=== PATIENT | male | born 1980 | race Caucasian/White ===

== ENCOUNTER → 2017-01-27 | Emergency (ER) | payer SELFPAY ==
[~2017-01-27] VITALS: Ht 175.3 cm; Wt 81.6 kg
[~2017-01-27] MED LIST: CYCL10TA9 PO; NS IV 1000 ML 1,000 ML IV ONE
--- OUTSIDE RECORDS SUMMARY | 2017-01-27 17:02 | XMS REPORT | Continuity of Care Document ---
Author Author [facility] Address Unknown Phone Unavailable Allergies Medications Problems Date Dx Coded Attending Type Code Diagnosis Diagnosed By 09/23/2011 DIO LOUISE DO K 465.9 UPPER RESPIRATORY INFECTION 09/23/2011 TIMOTHY HOBBS APRNIA R 465.9 UPPER RESPIRATORY INFECTION 09/23/2011 RUTHIE ARAYA CHEMO R 465.9 UPPER RESPIRATORY INFECTION 09/23/2011 RUTHIE ARAYA CHEMO R 465.9 UPPER RESPIRATORY INFECTION 08/22/2012 DIO LOUISE DO K 486 PNEUMONIA ORGANISM UNSPECIFIED 08/22/2012 DIO LOUISE DO K V65.42 COUNSELING - SMOKING CESSATION 08/22/2012 TIMOTHY HOBBS APRNIA R 486 PNEUMONIA ORGANISM UNSPECIFIED 08/22/2012 KATYA HOBBS APRNRICIA R V65.42 COUNSELING - SMOKING CESSATION 08/22/2012 RUTHIE ARAYA CHEMO R 486 PNEUMONIA ORGANISM UNSPECIFIED 08/22/2012 RUTHIE FRONT END ALIGNMENT SPECIALIST, CHEMO R V65.42 COUNSELING - SMOKING CESSATION 08/22/2012 RUTHIE ARAYA, CHEMO R 486 PNEUMONIA ORGANISM UNSPECIFIED 08/22/2012 RUTHIE ARAYA CHEMO R V65.42 COUNSELING - SMOKING CESSATION 06/06/2014 RUTHIE ARAYA CHEMO R 780.79 FATIGUE 06/06/2014 RUTHIE ARAYA CHEMO R 786.50 CHEST PAIN 06/06/2014 RUTHIE ARAYA CHEMO R 780.79 FATIGUE 06/06/2014 RUTHIE ARAYA CHEMO R 786.50 CHEST PAIN Procedures Code [place] [address] ROUTINE VENIPUNCTURE 08/22/2012 14479 XRAY CHEST 2 VIEW 08/22/2012 06605 MYCOPLASMA ANTIBODY 08/22/2012 60336 XRAY CHEST 2 VIEW 06/06/2014 66947 EKG, TRACING 34355 ROUTINE VENIPUNCTURE 06/22/2014 45062 CBC 06/22/2014 [id number] GFR CALC (RESULT ONLY) 06/22/2014 80644 CMP 06/22/2014 79351 LIPID PANEL 06/22 20803 MAGNESIUM 2013 23325 [facility] 06/22/2014 Results Encounters ACCT No. Visit Date/Time Discharge Status Pt. Type Provider Facility Loc./Unit Complaint [id number] 06/22/2014 07:56:00 06/22/2014 23: 59:59 CLS Outpatient CHEMO HENDRICKS APRN [id number] 06/06/2014 14:53:00 06/06/2014 23: 59:59 CLS Outpatient CHEMO HENDRICKS APRN [id number] 03/13/2013 09:51:00 03/13/2013 23: 59:59 CLS Outpatient MADISON HOBBS APRN [id number] 08/22/2012 13:36:00 08/22/2012 23: 59:59 CLS Outpatient DIO LOUISE DO
--- NOTE | 2017-01-27 18:26 | ED Abdominal Pain ---
General Chief Complaint: Abdominal/GI Problems Stated Complaint: ABDOMINAL PAIN/NAUSEA Nursing Triage Note: AMB TO ROOM C/O L SIDE ABD PAIN SINCE WEDNESDAY. Sepsis Screen: No Definite Risk Source of Information: Patient Exam Limitations: No Limitations History of Present Illness Time Seen By Provider: 18:09 Initial Comments here with complaint of left-sided abdominal pain that has been going on for 3 days. States it's worse when he takes a deep breath. He has not had a bowel movement for several days. 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 States he's been drinking plenty of fluids but does feel dehydrated. Did have increasing left-sided pain today and had an episode of vomiting without but otherwise no vomiting. He did take a Naprosyn 500 mg by mouth at about 2 p.m. today and that has not significantly helped with the pain. Denies dysuria. Denies difficulty with eating or drinking otherwise. When he takes a deep breath, he feels the pain in the left lower quadrant and in the left low chest wall. He does not have pain in between. Timing/Duration: 3-4 Days Severity/Quality: Moderate, Aching Location: LLQ Radiation: Chest (left lower chest) Activities at Onset: None Associated Symptoms: No Back Pain, Chest Pain, No Fever/Chills, Nausea/Vomiting Allergies and Home Medications Allergies Coded Allergies: No Known Drug Allergies (Unverified , 03/27/16) Home Medications Cyclobenzaprine HCl 10 Mg Tablet, 10 MG PO Q8H PRN for SPASMS, #14 Ref 0 Prescribed by: YOLY LOPEZ on 03/28/16 1610 Review of Systems Constitutional: see HPI, No chills, No fever EENTM: No Symptoms Reported Respiratory: No Symptoms Reported Cardiovascular: See HPI, Denies Edema Gastrointestinal: Abdominal Pain, Constipated, Denies Diarrhea, Denies Nausea, Vomiting Genitourinary: No Symptoms Reported Musculoskeletal: no symptoms reported Skin: no symptoms reported All Other Systems Reviewed Negative Unless Noted: Yes Past Qndxbfn-Vnvdqb-Btloiz Hx Patient Social History Alcohol Use: Occasionally Uses Recreational Drug Use: No Smoking Status: Current Everyday Smoker Type Used: Cigarettes Recent Foreign Travel: No Contact w/Someone Who Travel: No Recent Infectious Disease Expo: No Recent Hopitalizations: No Seasonal Allergies Seasonal Allergies: No Surgeries HX Surgeries: Yes (HERNIA REPAIR, ) Surgeries: Abdominal, Adenoidectomy, Ear Surgery, Tonsillectomy Respiratory Hx Respiratory Disorders: No Cardiovascular Hx Cardiac Disorders: No Neurological Hx Neurological Disorders: No Reproductive System Hx Reproductive Disorders: No Genitourinary Hx Genitourinary Disorders: No Gastrointestinal Hx Gastrointestinal Disorders: No Musculoskeletal Hx Musculoskeletal Disorders: No Endocrine Hx Endocrine Disorders: No HEENT HX ENT Disorders: No Cancer Hx Cancer: No Psychosocial Hx Psychiatric Problems: No Integumentary HX Skin/Integumentary Disorder: No Blood Transfusions Hx Blood Disorders: No Reviewed Nursing Assessment Reviewed/Agree w Nursing PMH: Yes Family Medical History Significant Family History: No Pertinent Family Hx Physical Exam Vital Signs VS - Last 72 Hours, by Label 01/27/17 17:47 Temp 98.0 Pulse 98 Resp 18 B/P (MAP) 140/73 Pulse Ox 98 Capillary Refill : Less Than 3 Seconds General Appearance: WD/WN, no apparent distress HEENT: PERRL/EOMI, pharynx normal Neck: full range of motion, supple Respiratory: lungs clear, normal breath sounds Cardiovascular: regular rate, rhythm, no murmur Gastrointestinal: normal bowel sounds, non tender, soft, no organomegaly, no pulsatile mass Extremities: non-tender, normal inspection Back: normal inspection, no CVA tenderness, no vertebral tenderness Neurologic/Psychiatric: alert, oriented x 3 Skin: normal color, warm/dry Progress/Results/Core Measures Results/Orders Lab Results Laboratory Tests Test 01/27/17 18:53 Range/Units White Blood Count 7.8 4.3-11.0 10^3/uL Red Blood Count 5.37 4.35-5.85 10^6/uL Hemoglobin 16.8 13.3-17.7 G/DL Hematocrit 50 40-54 % Mean Corpuscular Volume 92 80-99 FL Mean Corpuscular Hemoglobin 31 25-34 PG Mean Corpuscular Hemoglobin Concent 34 32-36 G/DL Red Cell Distribution Width 14.3 10.0-14.5 % Platelet Count 190 130-400 10^3/uL Mean Platelet Volume 10.3 7.4-10.4 FL Neutrophils (%) (Auto) 52 42-75 % Lymphocytes (%) (Auto) 31 12-44 % Monocytes (%) (Auto) 13 H 0-12 % Eosinophils (%) (Auto) 4 0-10 % Basophils (%) (Auto) 1 0-10 % Neutrophils # (Auto) 4.1 1.8-7.8 X 10^3 Lymphocytes # (Auto) 2.4 1.0-4.0 X 10^3 Monocytes # (Auto) 1.0 0.0-1.0 X 10^3 Eosinophils # (Auto) 0.3 0.0-0.3 10^3/uL Basophils # (Auto) 0.0 0.0-0.1 10^3/uL Sodium Level 138 135-145 MMOL/L Potassium Level 3.6 3.6-5.0 MMOL/L Chloride Level 104 98-107 MMOL/L Carbon Dioxide Level 26 21-32 MMOL/L Anion Gap 8 5-14 MMOL/L Blood Urea Nitrogen 16 7-18 MG/DL Creatinine 0.75 0.60-1.30 MG/DL Estimat Glomerular Filtration Rate > 60 BUN/Creatinine Ratio 21 Glucose Level 115 H 70-105 MG/DL Calcium Level 9.1 8.5-10.1 MG/DL Total Bilirubin 0.2 0.1-1.0 MG/DL Aspartate Amino Transf (AST/SGOT) 13 5-34 U/L Alanine Aminotransferase (ALT/SGPT) 17 0-55 U/L Alkaline Phosphatase 53 40-136 U/L Total Protein 6.5 6.4-8.2 GM/DL Albumin 3.8 3.2-4.5 GM/DL Amylase Level 52 25-125 U/L Lipase 43 8-78 U/L My Orders Orders - LINWOOD SHIELDS MD Amylase (01/27/17 18:20) Cbc With Automated Diff (01/27/17 18:20) Comprehensive Metabolic Panel (01/27/17 18:20) Lipase (01/27/17 18:20) Ua Culture If Indicated (01/27/17 18:20) Saline Lock/Iv-Start (01/27/17 18:20) Ns Iv 1000 Ml (Sodium Chloride 0.9%) (01/27/17 18:20) Acute Abd Series (01/27/17 18:20) Medications Given in ED Current Medications Medications Dose Ordered Sig/Mary Route Start Time Stop Time Status Last Admin Dose Admin Sodium Chloride 1,000 ml @ 0 mls/hr Q0M ONCE IV 01/27/17 18:20 01/27/17 18:22 DC 01/27/17 19:04 1,000 MLS/HR Vital Signs/I&O Vital Sign - Last 12Hours 01/27/17 17:47 Temp 98.0 Pulse 98 Resp 18 B/P (MAP) 140/73 Pulse Ox 98 Blood Pressure Mean: 95 Progress Note : Progress Note seen and evaluated. IV, labs, UA, normal saline 1 L bolus and acute abdominal series ordered. Monitor patient. Discussed pain medicine options and he would like to hold for now. Diagnostic Imaging Diagonstic Imaging: Xray Plain Films/CT/US/NM/MRI: chest, abdomen Comments VIA [facility]. [place], [place] NAME: ISI BOBBY [facility] REC#: [id number] PT STATUS: REG ER : 1980 PHYSICIAN: LINWOOD SHEILDS MD ADMIT DATE: 01/27/17/ER Draft Date of Exam:01/27/17 ACUTE ABD SERIES INDICATION: None given. EXAMINATION: Acute abdomen series. FINDINGS: The heart size is normal. The lungs appear clear. Bowel gas pattern is nonspecific. There is no free air. There are no abnormal abdominal calcifications. IMPRESSION: 1. No acute cardiopulmonary 2. Nonspecific bowel gas pattern. Dictated on workstation # [id number] Dict: 01/27/171913 Trans: 01/27/171928 [facility] [id number] Interpreted by: JULIEN PARISI Electronically signed by: Reviewed: Reviewed by Me Departure Impression Impression: Primary Impression: Constipation Additional Impression: Abdominal pain, acute, left lower quadrant Disposition: 01 HOME, SELF-CARE Condition: Improved Departure-Patient Inst. Decision time for Depature: 20:20 Referrals: NO,LOCAL PHYSICIAN (PCP/Family) Primary Care Physician Patient Instructions: Acute Abdomen (Belly Pain), Adult (DC), Constipation, Adult (DC) Add. Discharge Instructions: All discharge instructions reviewed with patient and/or family. Voiced understanding. you may take Tylenol 1000 mg every 8 hours as needed for pain. Drink plenty of fluids. Increase fiber in her diet. You may take MiraLAX or the generic one capful twice daily for 3 days and then one capful daily thereafter to keep stools soft. He may increase or decrease dose as needed to have normal bowel movements. Follow-up with your Dr. in a few days for recheck. Return for worse pain, fever, vomiting, weakness, breathing problems or other concerns as needed. LINWOOD SHIELDS MD Jan 27, 2017 18:26
[2017-01-27 19:00] LABS: BASOPHILS % (AUTO) 1 % (0-10); EOSINOPHILS # (AUTO) 0.3 10^3/uL (0.0-0.3); EOSINOPHILS % (AUTO) 4 % (0-10); LYMPHOCYTES # (AUTO) 2.4 X 10^3 (1.0-4.0); LYMPHOCYTES % (AUTO) 31 % (12-44); MEAN CORPUSCULAR HEMOGLOBIN 31 PG (25-34); MEAN CORPUSCULAR HGB CONC 34 G/DL (32-36); MEAN CORPUSCULAR VOLUME 92 FL (80-99); MEAN PLATELET VOLUME 10.3 FL (7.4-10.4); MONOCYTES % (AUTO) 13 % (0-12); NEUTROPHILS # (AUTO) 4.1 X 10^3 (1.8-7.8); NEUTROPHILS % (AUTO) 52 % (42-75); PLATELET COUNT 190 10^3/uL (130-400); RED BLOOD COUNT 5.37 10^6/uL (4.35-5.85); RED CELL DISTRIBUTION WIDTH 14.3 % (10.0-14.5); WHITE BLOOD COUNT 7.8 10^3/uL (4.3-11.0)
[2017-01-27 19:20] LABS: ALANINE AMINOTRANSFERASE 17 U/L (0-55); ALBUMIN 3.8 GM/DL (3.2-4.5); AMYLASE 52 U/L (25-125); ANION GAP 8 MMOL/L (5-14); ASPARTATE AMINO TRANSFERASE 13 U/L (5-34); BILIRUBIN,TOTAL 0.2 MG/DL (0.1-1.0); BLOOD UREA NITROGEN 16 MG/DL (7-18); BUN/CREATININE RATIO 21; CALCIUM 9.1 MG/DL (8.5-10.1); CARBON DIOXIDE 26 MMOL/L (21-32); CHLORIDE 104 MMOL/L (98-107); CREATININE SERUM 0.75 MG/DL (0.60-1.30); GFR ESTIMATED > 60; GLUCOSE 115 MG/DL (70-105); LIPASE 43 U/L (8-78); POTASSIUM 3.6 MMOL/L (3.6-5.0); SODIUM 138 MMOL/L (135-145); TOTAL PROTEIN 6.5 GM/DL (6.4-8.2)
--- NOTE | 2017-01-27 19:29 | Diagnostic Imaging Report ---
INDICATION: None given. EXAMINATION: Acute abdomen series. FINDINGS: The heart size is normal. The lungs appear clear. Bowel gas pattern is nonspecific. There is no free air. There are no abnormal abdominal calcifications. IMPRESSION: 1. No acute cardiopulmonary 2. Nonspecific bowel gas pattern. Dictated by: Dictated on workstation # [id number]
[2017-01-27 20:21] LABS: BILIRUBIN,URINE NEGATIVE (NEGATIVE); KETONES,URINE 1+ (NEGATIVE); LEUKOCYTE ESTERASE ,URINE NEGATIVE (NEGATIVE); NITRITE,URINE NEGATIVE (NEGATIVE); PH,URINE 5 (5-9); PROTEIN,URINE 1+ (NEGATIVE); UROBILINOGEN,URINE 1 MG/DL (NORMAL)
[2017-01-27 20:40] VITALS: BP 140/73
[2017-01-27 20:41] LABS: WBC,URINE RARE /HPF
== END | disposition home or self-care (01) ==
LOC: EDUNIT# 16:55 → ER 16:58
DX: K59.00 Constipation, unspecified (principal); R10.32 Left lower quadrant pain; F17.210 Nicotine dependence, cigarettes, uncomplicated; Z90.89 Acquired absence of other organs
CPT/HCPCS: 36415; 74022; 80053; 81000; 82150; 83690; 85025; 96360; 99282

== ENCOUNTER 2019-03-06 07:38 | Emergency (ER) | payer SELFPAY ==
[~2019-03-06] VITALS: Ht 175.3 cm; Wt 72.6 kg
[~2019-03-06 07:38] MED LIST changes: -NS IV 1000 ML 1,000 ML IV ONE
[2019-03-06] MEDS ORDERED: ONDA4TAB11 SL (08:19)
--- NOTE | 2019-03-06 08:20 | ED General ---
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 ATE BISQUET SAUSAGE AND EGG LAST NIGHT WITHOUT PROBLEM. DENIES PAIN Nursing Sepsis Screen: No Definite Risk Source of Information: Patient Exam Limitations: No Limitations (KAREN POPE MD) History of Present Illness Date Seen by Provider: Mar 06, 2019 Time Seen by Provider: 08:17 Initial Comments A 38 yo male presents to the ER with complaints of nausea. The nausea began a week ago and has progressively gotten worse. He has also had a sinus congestion for two weeks, but thinks the two symptoms are separate. His nausea related symptoms caused him to miss two days of work last week and decided that he should be checked appropriately. He does not report anything that makes his nausea worse, but states that his nausea is relieved with time. 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 He did vomit this morning. His social history is significant for smoking 1/2 ppd for 25 yrs along with "occasional" marijuana use. (LIZZY NEWTON) Allergies and Home Medications Allergies Coded Allergies: No Known Drug Allergies (Unverified , 03/27/16) Home Medications Cyclobenzaprine HCl 10 Mg Tablet, 10 MG PO Q8H PRN for SPASMS Prescribed by: YOLY LOPEZ on 03/28/16 1610 Ondansetron 4 Mg Tab.rapdis, 4 MG SL Q4H PRN for NAUSEA/VOMITING Prescribed by: KAREN LOERA on 03/06/19 0819 Review of Systems Review of Systems Constitutional: chills; No fever EENTM: No hearing loss, No blurred vision, No double vision, No throat pain Respiratory: cough (With sputum); No dyspnea on exertion, No short of breath Cardiovascular: No chest pain Gastrointestinal: No nausea, No vomiting (LIZZY NEWTON) Past Qpcrxkd-Brimoc-Kusaur Hx Patient Social History Alcohol Use: Denies Use Recreational Drug Use: No Smoking Status: Current Everyday Smoker Type Used: Cigarettes Recent Foreign Travel: No Contact w/Someone Who Travel: No Recent Infectious Disease Expo: No Recent Hopitalizations: No (KAREN POPE MD) Seasonal Allergies Seasonal Allergies: No (KAREN POPE MD) Past Medical History Surgeries: Yes (HERNIA REPAIR, ) Abdominal, Adenoidectomy, Ear Surgery, Tonsillectomy Respiratory: No Cardiac: No Neurological: No Reproductive Disorders: No Gastrointestinal: No Musculoskeletal: No Endocrine: No Cancer: No Psychosocial: No Integumentary: No Blood Disorders: No (KAREN POPE MD) Family Medical History No Pertinent Family Hx (KAREN POPE MD) Physical Exam Vital Signs Vital Signs - First Documented 03/06/19 07:46 Temp 98.4 Pulse 74 Resp 18 B/P (MAP) 141/73 (95) Pulse Ox 98 O2 Delivery Room Air (LIZZY NEWTON) Vital Signs Capillary Refill : Less Than 3 Seconds (KAREN POPE MD) Height, Weight, BMI Height: 5'9.00" Weight: 160lbs. oz. 72.688071hk; BMI Method:Stated (KAREN POPE MD) General Appearance: No Apparent Distress, WD/WN HEENT: TMs Normal, Normal ENT Inspection, Pharynx Normal, Moist Mucous Membranes, Other (Sinuses were Non-tender) Neck: No Lymphadenopathy (L), No Lymphadenopathy (R) Respiratory: Chest Non Tender, No Accessory Muscle Use, No Respiratory Distress; No Accessory Muscle Use; Wheezing Cardiovascular: Regular Rate, Rhythm, No Edema, No Gallop, No JVD, No Murmur, Normal Peripheral Pulses Gastrointestinal: Normal Bowel Sounds, No Organomegaly, No Pulsatile Mass, Non Tender, Soft Neurologic/Psychiatric: Alert, Oriented x3 Lymphatic: No Adenopathy (in the supraclavicular, mandibular, and postauricular) (LIZZY NEWTON) Progress/Results/Core Measures Suspected Sepsis Recent Fever Within 48 Hours: No Infection Criteria Present: None New/Unexplained Altered Menta: No Sepsis Screen: No Definite Risk SIRS Temperature:98.4 Pulse: 74 Respiratory Rate: 18 Blood Pressure 141 /73 Mean: 95 (KAREN POPE MD) Results/Orders Vital Signs/I&O Capillary Refill : Less Than 3 Seconds (KAREN POPE MD) Blood Pressure Mean: 95 Progress Note : Time: 08:43 Progress Note The viral illness that is associated with the patients sinus congestion could be causing acute onset gastritis resulting in the symptoms of nausea. Also/or, the viral illness is causing post nasal drip resulting in GI disturbance and nausea. Due to the acute onset of symptoms, H.Pylori induce gastric ulcer is possible but unlikely. Counseled the patient to stop smoking due to wheezing bilaterally in the upper lung floyd Will address symptoms of nausea with Zofran and encourage adequate hydration during illness. (LIZZY NEWTON) Departure Impression Primary Impression: Nausea & vomiting Qualified Codes: R11.2 - Nausea with vomiting, unspecified Additional Impression: Viral upper respiratory infection Disposition: HOME, SELF-CARE Condition: Improved Departure-Patient Inst. Decision time for Depature: 08:12 (KAREN POPE MD) Referrals: [facility],LOCAL PHYSICIAN (PCP) Primary Care Physician Patient Instructions: Nausea and Vomiting, Adult, Viral Upper Respiratory Infection, Adult (DC) Add. Discharge Instructions: Your nasal congestion and cough are likely due to a viral illness. You may treat with mnbd-oec-doguvsh cough and cold medications. A cough or cold medication that includes a decongestant may be helpful. Use Zofran (ondansetron) as prescribed for nausea and vomiting. Start with a clear liquid diet and gradually advance your diet with small quantities of bland food as tolerated. Avoid fatty or greasy foods or other foods that irritate your stomach until symptoms have completely resolved. Please establish with a primary care provider. Return to care if you have worsening symptoms. Work toward quitting smoking. Seek assistance from your primary care provider if needed. All discharge instructions reviewed with patient and/or family. Voiced understanding. Scripts Ondansetron (Ondansetron Odt) 4 Mg Tab.rapdis 4 MG SL Q4H PRN for NAUSEA/VOMITING, #10 TAB Prov: KAREN POPE MD 03/06/19 Work/School Note: Work Release Form Date Seen in the Emergency Department: Mar 06, 2019 Return to Work: Mar 06, 2019 Other Restrictions Listed Below: May return to work after filling medication. KAREN POPE MD Mar 06, 2019 08:19 LIZZY NEWTON Mar 07, 2019 06:06
[2019-03-06 08:27] VITALS: BP 141/73
--- NOTE | 2019-03-06 08:31 | ED Abdominal Pain ---
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 ATE BISQUET SAUSAGE AND EGG LAST NIGHT WITHOUT PROBLEM. DENIES PAIN Sepsis Screen: No Definite Risk History of Present Illness Date Seen by Provider: Mar 06, 2019 Time Seen by Provider: 08:17 Initial Comments A 38 yo male presents to the ER with complaints of nausea. The nausea began a week ago and has progressively gotten worse. He has also had a sinus congestion for two weeks, but thinks the two symptoms are separate. His nausea related symptoms caused him to miss two days of work last week and decided that he should be checked appropriately. He does not report anything that makes his nausea worse, but states that his nausea is relieved with time. 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 He did vomit this morning. His social history is significant for smok ing 1/2 ppd for 25 yrs along with "occasional" marijuana use. Allergies and Home Medications Allergies Coded Allergies: No Known Drug Allergies (Unverified , 03/27/16) Home Medications Cyclobenzaprine HCl 10 Mg Tablet, 10 MG PO Q8H PRN for SPASMS Prescribed by: YOLY LOPEZ on 03/28/16 1610 Ondansetron 4 Mg Tab.rapdis, 4 MG SL Q4H PRN for NAUSEA/VOMITING Prescribed by: KAREN LOERA on 03/06/19 0819 Review of Systems Review of Systems Constitutional: chills; No fever EENTM: No Blurred Vision, No Double Vision, No Throat Pain, No Other (Changes in hearing) Respiratory: Cough (With phlegm); Denies Shortness of Air, Denies SOA With Exertion, Denies SOA at Rest Cardiovascular: Denies Chest Pain Gastrointestinal: Nausea, Vomiting Past Vxqguwp-Ndnmdv-Vgmsoc Hx Patient Social History Alcohol Use: Denies Use Recreational Drug Use: No Smoking Status: Current Everyday Smoker Type Used: Cigarettes Recent Foreign Travel: No Contact w/Someone Who Travel: No Recent Infectious Disease Expo: No Recent Hopitalizations: No Seasonal Allergies Seasonal Allergies: No Past Medical History Surgeries: Yes (HERNIA REPAIR, ) Abdominal, Adenoidectomy, Ear Surgery, Tonsillectomy Respiratory: No Cardiac: No Neurological: No Reproductive Disorders: No Gastrointestinal: No Musculoskeletal: No Endocrine: No Cancer: No Psychosocial: No Integumentary: No Blood Disorders: No Family Medical History No Pertinent Family Hx Physical Exam Vital Signs Vital Signs - First Documented 03/06/19 07:46 Temp 98.4 Pulse 74 Resp 18 B/P (MAP) 141/73 (95) Pulse Ox 98 O2 Delivery Room Air Capillary Refill : Less Than 3 Seconds Height/Weight/BMI Height: 5'9.00" Weight: 160lbs. oz. 72.493635ai; BMI Method:Stated General Appearance: WD/WN, no apparent distress HEENT: normal ENT inspection, TMs normal, pharynx normal Neck: non-tender, normal inspection; No lymphadenopathy (R), No lymphadenopathy (L) Respiratory: chest non-tender, no respiratory distress, no accessory muscle use; No decreased breath sounds, No accessory muscle use; wheezing Cardiovascular: normal peripheral pulses, regular rate, rhythm, no edema, no gallop, no JVD, no murmur Peripheral Pulses: 2+ Radial Pulses (R), 2+ Radial Pulses (L) Gastrointestinal: normal bowel sounds, non tender, soft, no organomegaly, no pulsatile mass Lymphatic: no adenopathy Progress/Results/Core Measures Results/Orders Vital Signs/I&O 03/06/19 03/06/19 07:46 08:27 Temp 98.4 98.4 Pulse 74 74 Resp 18 18 B/P (MAP) 141/73 (95) 141/73 (95) Pulse Ox 98 98 O2 Delivery Room Air Blood Pressure Mean: 95 Progress Progress Note : Time: 08:43 Progress Note The viral illness that is associated with the patients sinus congestion could be causing acute onset gastritis resulting in the symptoms of nausea. Also/or, the viral illness is causing post nasal drip resulting in GI disturbance and nausea. Due to the acute onset of symptoms, H.Pylori induce gastric ulcer is possible but unlikely. Counseled the patient to stop smoking due to wheezing bilaterally in the upper lung floyd Will address symptoms of nausea with Zofran and encourage adequate hydration during illness. Departure Departure-Patient Inst. Referrals: NO,LOCAL PHYSICIAN (PCP/Family) Primary Care Physician Scripts Ondansetron (Ondansetron Odt) 4 Mg Tab.rapdis 4 MG SL Q4H PRN for NAUSEA/VOMITING, #10 TAB Prov: KAREN POPE MD 03/06/19 LIZZY NEWTON [facility] Mar 06, 2019 08:31
== END 2019-03-06 08:27 | disposition home or self-care (01) ==
LOC: EDUNIT# 07:38 → ER 07:39
DX: R11.2 Nausea with vomiting, unspecified (principal); J06.9 Acute upper respiratory infection, unspecified; F17.210 Nicotine dependence, cigarettes, uncomplicated; Z90.89 Acquired absence of other organs; Z98.890 Other specified postprocedural states
CPT/HCPCS: 99282